=== PATIENT | male | born 1975 | race Caucasian/White ===

== ENCOUNTER → 2018-08-02 | Outpatient (CLI) | payer OTHER ==
--- NOTE | 2018-08-02 09:51 | RAD ---
Bilateral lower extremity venous ultrasound, 08/02/2018: History: Left leg pain and swelling Duplex evaluation of the deep veins in the lower extremities was performed including grayscale, color-flow and spectral Doppler analysis. The femoral and popliteal veins demonstrate normal compressibility and normal responses to distal augmentation maneuvers. Color imaging of those vessels shows no evidence of intraluminal clot. The visualized deep veins in both calves are patent. IMPRESSION: There is no sonographic evidence of deep vein thrombosis in either lower extremity. Electronically signed by: Sage Hester MD (08/02/2018 9:49 AM) [facility]
--- NOTE | 2018-08-02 09:56 | RAD ---
Bilateral lower extremity venous insufficiency ultrasound exam, 08/02/2018: HISTORY: Left leg pain and swelling Duplex evaluation of the saphenous veins in both lower extremities was performed including grayscale, color-flow and spectral Doppler analysis. On the right common the greater saphenous vein is patent. It does does not demonstrate significant reflux. On the left, the greater saphenous vein measures 6 mm near the saphenofemoral junction level and demonstrates significant reflux with a reflux time of 2.9 seconds. Significant reflux is identified at the other levels in the greater saphenous vein in the thigh extending down into the proximal calf. Inferior to this level the greater saphenous vein is thrombosed. The lesser saphenous veins are patent in both calves and show no significant reflux. IMPRESSION: 1. Significant reflux in the left greater saphenous vein from the level of the groin down to the proximal calf. Inferior to this level that vein is thrombosed. 2. No significant reflux in the right greater saphenous vein or either lesser saphenous veins. Electronically signed by: Sage Hester MD (08/02/2018 9:53 AM) [facility]
== END | disposition home or self-care (01) ==
LOC: US 07:46
PROVIDERS: ATTEND Family Medicine
DX: I82.812 Embolism and thrombosis of superficial veins of left lower extremity (principal)
CPT/HCPCS: 93970

== ENCOUNTER → 2018-09-30 | Outpatient (CLI) | payer OTHER ==
--- NOTE | 2018-09-30 09:42 | CARD ---
MR#: [id number] Date of Study: 09/30/2018 Ordering Physician: LEWIS STILL, Referring Physician: LEWIS STILL Tech: Anna Dennis RDCS APPROVED REPORT EXAM: Two-dimensional and M-mode echocardiogram with Doppler and color Doppler. Other Information Quality : GoodHR: 70bpm Rhythm : NSR INDICATION Chest Pain 2D DIMENSIONS RVDd3.2 (2.9-3.5cm)Left Atrium(2D)3.3 (1.6-4.0cm) IVSd1.3 (0.7-1.1cm)Aortic Root(2D)3.6 (2.0-3.7cm) LVDd4.4 (3.9-5.9cm)LVOT Diameter2.5 (1.8-2.4cm) PWd1.0 (0.7-1.1cm)LVDs3.3 (2.5-4.0cm) FS (%) 25.4 %SV44.0 ml LVEF(%)50.4 (>50%) M-Mode DIMENSIONS RVDd2.80 (2.1-3.2cm)Left Atrium(MM)2.85 (2.5-4.0cm) IVSd0.69 (0.7-1.1cm)Aortic Root3.67 (2.2-3.7cm) LVDd5.23 (4.0-5.6cm)PWd1.13 (0.7-1.1cm) FS (%) 28 %LVDs3.78 (2.0-3.8cm) ESV(Teich)61.2 mlLVEF(%)53 (>50%) Aortic Valve AoV Peak Xander.82.9cm/sAoV VTI17.1cm AO Peak GR.2.7mmHgLVOT Peak Xander.76.1cm/s AO Mean GR.1mmHgAVA (VMAX)4.46cm2 JOVAN (VTI)3.80cm2 Mitral Valve MV E Onrlsqhp30.9cm/sMV DECEL WASF408nf MV A Zrdyeouo91.8cm/sE/A Ratio1.8 MV A [id number] Pulmonary Valve PV Peak Gwedwgqo14.9cm/s Tricuspid Valve TR P. Mbiykhsb378lf/sRAP [id number] TR Peak Gr.70pnTqTZYF13jfNz LEFT VENTRICLE The left ventricle is normal size. There is borderline to mild concentric left ventricular hypertroph y. Left ventricle systolic function is normal. The Ejection Fraction is 50-55%. There is normal LV se gmental wall motion. RIGHT VENTRICLE The right ventricle is normal size. There is normal right ventricular wall thickness. The right ventr icular systolic function is normal. ATRIA The left atrium size is normal. The right atrium size is normal. The interatrial septum is intact wit h no evidence for an atrial septal defect or patent foramen ovale as noted on 2-D or Doppler imaging. AORTIC VALVE The aortic valve is normal in structure and function. The aortic valve is trileaflet. Doppler and Col or Flow revealed no significant aortic regurgitation. There is no significant aortic valvular stenosi s. There is no aortic valvular vegetation. MITRAL VALVE The mitral valve is normal in structure and function. There is no evidence of mitral valve prolapse. There is no mitral valve stenosis. Doppler and Color Flow revealed no mitral valve regurgitation note d. TRICUSPID VALVE The tricuspid valve is normal in structure and function. Doppler and Color Flow revealed trace tricus pid regurgitation. The PA pressure was estimated at 24 mmHg. There is no tricuspid valve prolapse or vegetation. There is no tricuspid valve stenosis. PULMONIC VALVE The pulmonary valve is normal in structure and function. Doppler and Color Flow revealed trace pulmon ic valvular regurgitation. There is no pulmonic valvular stenosis. GREAT VESSELS The aortic root is normal in size. The ascending aorta is normal in size. The IVC is normal in size a nd collapses >50% with inspiration. PERICARDIAL EFFUSION There is no evidence of significant pericardial effusion. Critical Notification Critical Value: No <Conclusion> Left ventricle systolic function is normal. The Ejection Fraction is 50-55%. There is normal LV segmental wall motion. Doppler and Color Flow revealed trace tricuspid regurgitation. The PA pressure was estimated at 24 mmHg. There is no evidence of significant pericardial effusion. Signed by : Lewis Still, Electronically Approved : 09/30/2018 09:41:36
== END | disposition home or self-care (01) ==
LOC: ECHO 07:31
PROVIDERS: ATTEND Internal Medicine Cardiovascular Disease
DX: R07.9 Chest pain, unspecified (principal); I87.2 Venous insufficiency (chronic) (peripheral)
CPT/HCPCS: 93306

== ENCOUNTER → 2018-10-07 | Outpatient (CLI) | payer OTHER ==
[~2018-10-07] MED LIST: LIDOCAINE 1%/EPI 1:100,000 50 ML, SODIUM BICARBONATE VIAL 5 MEQ in IV NORMAL SALINE 100... SQ STA
--- NOTE | 2018-10-07 14:04 | CARD ---
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 PROCEDURE NARRATIVE The patient was transferred to the procedure suite and the insufficient saphenous vein was mapped by ultrasound and diagrammed on the underlying skin. The depth and diameter of the vein(s) to be treate d was documented. The varicose tributary veins and suitable access sites were identified and mapped as well. The patient was then positioned supine on the procedure table. The entire limb was sterile ly prepared and the lower extremity and treatment table were sterilely draped. The RF catheter was placed on the sterile field, flushed and wiped down, prepared, and connected by a sterile cable. The patient was placed in reverse-Trendelenburg position and local anesthesia was instilled in the sk in overlying the access site. A skin incision was made overlying the identified and mapped greater s aphenous vein entry site. The vein was punctured through the incision and using ultrasound guidance and the Seldinger technique a guide wire was introduced through the needle which was then exchanged o caprice the guide wire for a 7 F sheath. The guide wire was removed and the sheath was flushed. The RF probe was placed into the vein through the sheath and positioned at a point just distal (about 0.5 to 1 cm) to the entrance point of the superficial epigastric artery using ultrasound guidance. After the RF probe position was verified by the ultrasound, tumescent anesthesia was infiltrated, und er ultrasound guidance, precisely into the perivenuus compartment along the entire length of vein fro m the entry site to the saphenofemoral junction until a "halo" of fluid was noted around the vein. The patient was then placed in Trendelenburg position. After the RF probe position was again confirm ed with ultrasound imaging, moderate external compression was applied over the RF heating element, an d RF energy was applied. The probe was withdrawn sequentially in 6.5 cm steps with slight overlap of 7 cm segments of ablation and monitored to keep the probe temperature at 120 degrees Celsius and the generator output well below its maximum power. Treatment Segments: 9 Total Length: 52 cm. Tota l Ablation time: 3 minutes. Repeat ultrasound of the saphenous vein was performed confirming successful treatment. The catheter and sheath were withdrawn and hemostasis established with direct pressure. After assuring hemostasis , the skin incision over the saphenous vein was closed with a bandage and an external compression joanna ssing was applied from the level of the foot to the most proximal level of the thigh. Signed by : Lewis Still, Electronically Approved : 10/07/2018 14:03:55
== END | disposition home or self-care (01) ==
LOC: VNUS 11:52
PROVIDERS: ATTEND Internal Medicine Cardiovascular Disease
DX: I83.812 Varicose veins of left lower extremity with pain (principal); I87.2 Venous insufficiency (chronic) (peripheral)
CPT/HCPCS: 36475; J3490; J7030

== ENCOUNTER → 2018-10-08 | Outpatient (CLI) | payer OTHER ==
--- NOTE | 2018-10-14 10:34 | RAD ---
MR#: [id number] Date of Study: 10/08/2018 Ordering Physician: LEWIS YOUNG, Referring Physician: LEWIS YOUNG, Tech: JONATHAN Frank, RDMS, RTR APPROVED REPORT Left Lower Extremity Venous Study for DVT Patient Location: OUT-PATIENT Indications POST ABLATION LEFT GSV Findings Grayscale images of the left lower extremity deep veins reveal no obvious evidence of thrombus. The left greater saphenous vein is notable for a recent ablation with thrombus noted and appears to b e noncompressible. This is all consistent with recent history of ablation. The common femoral, superficial femoral, popliteal veins do not reveal any evidence of thrombus and a ppear to be compressible with normal spectral and color Doppler flow. The below-knee veins were not w ell visualized but appear to be compressible. Critical Notification Critical Value: No <Conclusion> 1. Negative for DVT in the left lower extremity 2. Successful left GSV ablation. Signed by : Pablito Marshall, Electronically Approved : 10/14/2018 10:34:12
== END | disposition home or self-care (01) ==
LOC: US 10:19
PROVIDERS: ATTEND Internal Medicine Cardiovascular Disease
DX: I87.2 Venous insufficiency (chronic) (peripheral) (principal)
CPT/HCPCS: 93971